=== PATIENT | female | born 1965 | race African-American/Black ===

== ENCOUNTER 2018-12-02 16:34 | Emergency (ER) | payer MEDICAID ==
[~2018-12-02] VITALS: Ht 167.6 cm; Wt 73.0 kg
[2018-12-02] MEDS ORDERED: KETOROLAC 60MG/2ML VIAL IM STA (22:19)
[2018-12-02] MEDS ORDERED: LIDOCAINE HCL/PF 1% 10 MG/ML 5ML VIAL IJ ONE (22:30)
[2018-12-02] MEDS ORDERED: BACITRACIN ZINC OINT UDPKT TOP ONE (22:30)
[2018-12-02 23:52] VITALS: BP 125/80
== END 2018-12-02 23:53 | disposition home or self-care (01) ==
LOC: ER 16:34
DX: N75.1 Abscess of Bartholin's gland (principal)
CPT/HCPCS: 10060; 96372; 99283; J1885; J3490; Z7610

== ENCOUNTER 2018-12-05 11:22 | Emergency (ER) | payer MEDICAID ==
[~2018-12-05] VITALS: Ht 167.6 cm; Wt 73.0 kg
[2018-12-05 15:59] VITALS: BP 124/83
== END 2018-12-05 16:00 | disposition home or self-care (01) ==
LOC: ER 11:22
DX: Z48.00 Encounter for change or removal of nonsurgical wound dressing (principal); N76.4 Abscess of vulva
CPT/HCPCS: 99281

== ENCOUNTER 2018-12-08 11:37 | Emergency (ER) | payer MEDICAID ==
[~2018-12-08] VITALS: Ht 167.6 cm; Wt 72.7 kg
[2018-12-08 12:28] VITALS: BP 155/91
== END 2018-12-08 13:57 | disposition home or self-care (01) ==
LOC: ER 13:35
DX: N75.1 Abscess of Bartholin's gland (principal); I10 Essential (primary) hypertension; F17.200 Nicotine dependence, unspecified, uncomplicated; Z98.51 Tubal ligation status
CPT/HCPCS: 99281